=== PATIENT | male | born 1955 | race Caucasian/White ===

== ENCOUNTER 2021-05-18 11:07 | Inpatient (IN) | payer BC, MEDICARE ==
[~2021-05-18] VITALS: Ht 177.8 cm; Wt 81.3 kg
[~2021-05-18 11:07] MED LIST: ASPI325T8 PO; GEMF600T20 PO; GLIP5TAB22 PO; LISI20TA18 PO; METF-658 PO; MULT-445 PO; OXYC1TAB15 PO
[2021-05-18 11:52] LABS: BASO % 1 % (0-3); EOS # 0.2 x10^3/uL (0.0-0.7); EOS % 4 % (0-3); HEMOGLOBIN 13.8 g/dL (13.0-17.5); LYMPH # 1.7 x10^3/uL (1.0-4.8); LYMPH % 26 % (24-48); MEAN CORPUSCULAR HEMOGLOBIN 30 pg (25-35); MEAN CORPUSCULAR HGB CONC 34 g/dL (31-37); MEAN CORPUSCULAR VOLUME 89 fL (79-100); MONO # 0.6 x10^3/uL (0.0-1.1); MONO % 10 % (0-9); NEUT # 3.8 x10^3/uL (1.8-7.7); NEUT % 59 % (31-73); PLATELET COUNT 216 x10^3/uL (140-400); RED BLOOD COUNT 4.63 x10^6/uL (4.30-5.70); RED CELL DISTRIBUTION WIDTH 13.2 % (11.5-14.5); WHITE BLOOD COUNT 6.4 x10^3/uL (4.0-11.0)
--- NOTE | 2021-05-18 11:54 | PHYS DOC ---
Past Medical History Past Medical History: Diabetes-Type II, Hypertension Past Surgical History: No Surgical History Smoking Status: Never Smoker Alcohol Use: Occasionally Drug Use: None Adult General Chief Complaint Chief Complaint: NEURO SYMPTOMS/DEFICITS HPI HPI Patient is a 66 year old male presenting to the emergency department for evaluation of slurred speech right hand discoordination and right leg weakness he says that he keeps odd hours and [facility] his baseline and then went to sleep and woke up this morning at 9 AM is not that is when he was trying to write something down and he says that he has very neat handwriting but noticed that he could not coordinate or write legibly as he usually does. He also felt that his right leg was weak and his noted that his speech was slurred. Patient has a history of hypertension diabetes and high cholesterol and he denies taking any blood thinners. He is in no acute distress with normal vital signs other than initial hypertension at 154/101 noted. Review of Systems Review of Systems Constitutional: Denies fever or chills [] Eyes: Denies change in visual acuity, redness, or eye pain [] HENT: Denies nasal congestion or sore throat [] Respiratory: Denies cough or shortness of breath [] Cardiovascular: No additional information not addressed in HPI [] GI: Denies abdominal pain, nausea, vomiting, bloody stools or diarrhea [] : Denies dysuria or hematuria [] Musculoskeletal: Denies back pain or joint pain [] Integument: Denies rash or skin lesions [] Neurologic: Denies headache. Positive focal weakness and discoordination. All other systems were reviewed and found to be within normal limits, except as documented in this note. Current Medications Current Medications Current Medications Medications (Trade) Dose Ordered Sig/Dulce Start Time Stop Time Status Last Admin Dose Admin Info (CONTRAST GIVEN -- Rx MONITORING) 1 each PRN DAILY PRN 05/18/21 12:15 05/20/21 12:14 Iohexol (Omnipaque 300 Mg/ml) 75 ml 1X ONCE 05/18/21 12:15 05/18/21 12:16 DC Allergies Allergies Allergies Coded Allergies Type Severity Reaction Last Updated Verified No Known Drug Allergies 04/06/14 No Physical Exam Physical Exam Constitutional: Well developed, well nourished, no acute distress, non-toxic appearance. [] HENT: Normocephalic, atraumatic, bilateral external ears normal, oropharynx moist, no oral exudates, nose normal. [] Eyes: PERRLA, EOMI, conjunctiva normal, no discharge. [] Neck: Normal range of motion, no tenderness, supple, no stridor. [] Cardiovascular:Heart rate regular rhythm, no murmur [] Lungs & Thorax: Bilateral breath sounds clear to auscultation [] Abdomen: Bowel sounds normal, soft, no tenderness, no masses, no pulsatile masses. [] Skin: Warm, dry, no erythema, no rash. [] Back: No tenderness, no CVA tenderness. [] Extremities: No tenderness, no cyanosis, no clubbing, ROM intact, no edema. [] Neurologic: Alert and oriented X 3, normal motor function, normal sensory function, no focal deficits noted. Normal [id number] and [id number]. Current Patient Data Lab Values Laboratory Tests Test 05/18/21 11:26 05/18/21 11:35 05/18/21 11:37 Glucose (Fingerstick) 142 mg/dL (70-99) H Thyroid Stimulating Hormone (TSH) 1.762 uIU/mL (0.358-3.74) White Blood Count 6.4 x10^3/uL (4.0-11.0) Red Blood Count 4.63 x10^6/uL (4.30-5.70) Hemoglobin 13.8 g/dL (13.0-17.5) Hematocrit 41.0 % (39.0-53.0) Mean Corpuscular Volume 89 fL (79-100) Mean Corpuscular Hemoglobin 30 pg (25-35) Mean Corpuscular Hemoglobin Concent 34 g/dL (31-37) Red Cell Distribution Width 13.2 % (11.5-14.5) Platelet Count 216 x10^3/uL (140-400) Neutrophils (%) (Auto) 59 % (31-73) Lymphocytes (%) (Auto) 26 % (24-48) Monocytes (%) (Auto) 10 % (0-9) H Eosinophils (%) (Auto) 4 % (0-3) H Basophils (%) (Auto) 1 % (0-3) Neutrophils # (Auto) 3.8 x10^3/uL (1.8-7.7) Lymphocytes # (Auto) 1.7 x10^3/uL (1.0-4.8) Monocytes # (Auto) 0.6 x10^3/uL (0.0-1.1) Eosinophils # (Auto) 0.2 x10^3/uL (0.0-0.7) Basophils # (Auto) 0.0 x10^3/uL (0.0-0.2) Sodium Level 139 mmol/L (136-145) Potassium Level 4.5 mmol/L (3.5-5.1) Chloride Level 102 mmol/L (98-107) Carbon Dioxide Level 25 mmol/L (21-32) Anion Gap 12 (6-14) Blood Urea Nitrogen 13 mg/dL (8-26) Creatinine 0.9 mg/dL (0.7-1.3) Estimated GFR (Cockcroft-Gault) 83.9 BUN/Creatinine Ratio 14 (6-20) Glucose Level 149 mg/dL (70-99) H Calcium Level 9.2 mg/dL (8.5-10.1) Total Bilirubin 0.6 mg/dL (0.2-1.0) Aspartate Amino Transferase (AST) 37 U/L (15-37) Alanine Aminotransferase (ALT) 44 U/L (16-63) Alkaline Phosphatase 56 U/L (46-116) Troponin I High Sensitivity 4 ng/L (4-75) IT-Sti-F-Type Natriuretic Peptide 24 pg/mL (0-124) Total Protein 7.4 g/dL (6.4-8.2) Albumin 4.8 g/dL (3.4-5.0) Albumin/Globulin Ratio 1.8 (1.0-1.7) H Laboratory Tests 05/18/21 11:37 Laboratory Tests 05/18/21 11:37 EKG EKG Sinus rhythm at 71 bpm with normal axis no deviation no ST elevation or depression normal T waves with normal intervals. Radiology/Procedures Radiology/Procedures [] Course & Med Decision Making Course & Med Decision Making Patient was seen by Dr. Ely he agrees with further stroke work-up. No signs or symptoms of a large vessel occlusion necessitating transfer patient will be admitted to the telemetry floor in stable condition with further stroke work-up pending. On my evaluation patient has an NIH stroke scale of 1 for his slurred speech. Dragon Disclaimer Dragon Disclaimer This electronic medical record was generated, in whole or in part, using a voice recognition dictation system. Departure Departure Impression: Primary Impression: Discoordination Additional Impressions: Right leg weakness Dysarthria Hypertension Disposition: ADMITTED INPATIENT Admitting Physician: LISETH Holbrook) Condition: STABLE Referrals: LIGIA KOVACS MD (PCP) Problem Qualifiers DEMETRIUS SHAFFER DO May 18, 2021 11:54
[2021-05-18 12:03] LABS: CALCIUM 9.2 mg/dL (8.5-10.1); CREATININE 0.9 mg/dL (0.7-1.3); GFR 83.9; POTASSIUM 4.5 mmol/L (3.5-5.1)
[2021-05-18 12:10] LABS: ALBUMIN 4.8 g/dL (3.4-5.0); ALBUMIN/GLOBULIN RATIO 1.8 (1.0-1.7); TOTAL BILIRUBIN 0.6 mg/dL (0.2-1.0); TOTAL PROTEIN 7.4 g/dL (6.4-8.2)
[2021-05-18] MEDS ORDERED: CONTRAST GIVEN. MC PRN (12:15)
[2021-05-18] MEDS ORDERED: IOHEXOL 300 MG/ML 100ML VIAL. IV ONE (12:15)
--- NOTE | 2021-05-18 12:19 | RAD ---
EXAMINATION: CT STROKE HEAD W/O CLINICAL HISTORY: Right upper and lower extremity weakness. TECHNIQUE: Serial axial images without IV contrast were obtained from the vertex to the foramen magnu m. CT Dose Reduction Employed: One or more of the following individualized dose reduction techniques wer e utilized for this examination: 1. Automated exposure control 2. Adjustment of the mA and/or kV ac cording to patient size 3. Use of iterative reconstruction technique. COMPARISON: None FINDINGS: Acute Change: No evidence of an acute infarct or other acute parenchymal process. Hemorrhage: No evidence of acute intracranial hemorrhage. Mass Lesion/Mass Effect: No evidence of intracranial mass or extraaxial fluid collection. No signific ant mass effect. Chronic Change: Scattered patchy foci of hypoattenuation in the supratentorial white matter, nonspeci fic but likely represents mild microvascular ischemia. Atherosclerotic calcification of the anterior and posterior circulation. Parenchyma: Mild to moderate generalized volume loss. Ventricles: Ventricular enlargement concordant with degree of parenchymal volume loss. Paranasal Sinuses and Skull Base: Visualized paranasal sinuses clear. Visualized skull base and soft tissues unremarkable. IMPRESSION: No evidence of acute intracranial abnormality. Findings discussed with DEMETRIUS SHAFFER DO at 05/18/2021 12:13 PM. Electronically signed by: Scottie Mendez DO (05/18/2021 12:16 PM) [id number]
[2021-05-18] MEDS ORDERED: ACETAMINOPHEN 325 MG TABLET. PO PRN (12:30)
[2021-05-18] MEDS ORDERED: ASPIRIN RECTAL 300 MG SUPP. PR PRN (12:30)
[2021-05-18] MEDS ORDERED: ONDANSETRON PF 4 MG/2 ML VIAL. IVP PRN (12:30)
--- NOTE | 2021-05-18 12:30 | RAD ---
EXAMINATION: CTA HEAD AND NECK W/WO CONTRAST CLINICAL HISTORY: Right upper and lower extremity weakness. TECHNIQUE: Spiral high resolution axial images were obtained through the head, neck and superior medi astinum following bolus administration of intravenous contrast for CT angiography. 3D maximum intensi ty projection images also performed. CT Dose Reduction Employed: One or more of the following individualized dose reduction techniques wer e utilized for this examination: 1. Automated exposure control 2. Adjustment of the mA and/or kV ac cording to patient size 3. Use of iterative reconstruction technique. COMPARISON: None FINDINGS: BRAIN: No evidence of acute ischemic stroke or intracranial hemorrhage. NECK: Soft Tissues: Unremarkable. Spine: Multilevel cervicothoracic degenerative changes. Lung Apices: Unremarkable. CT ARTERIOGRAM: Extracranial Circulation: Aortic Arch: Normal branching pattern from the aortic arch. No significant stenosis in the proximal b rachiocephalic vessels. Carotid Stenosis: Right Common: No significant stenosis. Right Internal Carotid Plaque: Mild to moderate mixed plaque in the bulb. Right Internal Carotid Stenosis (% by NASCET Criteria): No significant stenosis. Left Common: No significant stenosis. Left Internal Carotid Plaque: Mild calcified plaque in the bulb. Left Internal Carotid Stenosis (% by NASCET Criteria): No significant stenosis. Cervical Vertebral Arteries: Patency: Bilateral Dominance: Codominant Intracranial Circulation: Anterior Circulation: No evidence of large vessel occlusion. Mild calcified plaque in the intracrania l portion of the bilateral internal carotid arteries. Vertebrobasilar Circulation: No evidence of large vessel occlusion. IMPRESSION: No evidence of large vessel occlusion or significant carotid arterial stenosis. Findings discussed with DEMETRIUS SHAFFER DO at 05/18/2021 12:21 PM. Electronically signed by: Scottie Mendez DO (05/18/2021 12:28 PM) [id number]
--- NOTE | 2021-05-18 12:36 | PDOC2 ---
NEUROLOGY CONSULT Date of Service DOS: DATE: 05/18/21 TIME: 12:30 Reason for Consult Reason for Consult: Stroke symptoms Source Source: Chart review, Patient History of Present Illness History of Present Illness The patient is a 66-year-old right-handed male with onset of dysarthria and right side incoordination. He tells Dr. Iglesias that onset was at 0330 this sary martinez, he tells me it was 0600. His told him that he was also having some dysarthria. He is having trouble writing. There is no headache, diplopia, dysphagia, or any history of stroke, seizure, or head injury. He used to take a daily aspirin but stopped several years ago. Past Medical History Cardiovascular: HTN, Hyperlipidemia Endocrine: Diabetes Past Surgical History Past Surgical History: Hernia Repair, Other (Vasectomy) Family History Family History: Cancer, CAD Social History Social History , 2 beers a day, ex-smoker, retired Current Medications Current Medications Current Medications Iohexol (Omnipaque 300 Mg/ml) 75 ml 1X ONCE IV Last administered on 05/18/21at 12:20; Start 05/18/21 at 12:15; Stop 05/18/21 at 12:16; Status DC Info (CONTRAST GIVEN -- Rx MONITORING) 1 each PRN DAILY PRN MC SEE COMMENTS; Start 05/18/21 at 12:15; Stop 05/20/21 at 12:14 Ondansetron HCl (Zofran) 4 mg PRN Q8HRS PRN IVP NAUSEA/VOMITING; Start 05/18/21 at 12:30; Stop 05/19/21 at 12:29 Active Scripts Active Percocet 5-325 Mg Tablet (Oxycodone/Acetaminophen) 1 Each Tablet 1-2 Tab PO Q4- 6HRS Reported Aspirin 325 Mg Tablet 325 Mg PO DAILY Multivitamins (Multivitamin) 1 Each Tablet 1 Each PO DAILY Metformin Hcl Er (Metformin Hcl) 500 Mg Tab.er.24h 500 Mg PO BID Glipizide Er (Glipizide) 5 Mg Tab.er.24 5 Mg PO DAILY Gemfibrozil 600 Mg Tablet 600 Mg PO BID Lisinopril 20 Mg Tablet 20 Mg PO DAILY Allergies Allergies: Coded Allergies: No Known Drug Allergies (Unverified , 04/06/14) ROS Review of System Negative for fever, chills, weight loss, shortness of breath, chest pain, indigestion, hematochezia, melena, and dysuria. Full 14-point review of systems is negative. Physical Exam Physical Examination General: Well-developed, well-nourished white male in no acute distress HEENT: Normocephalic andatraumatic. Temporal arteriespulsatile and nontender.Fundoscopic exam unremarkable Neck: Supple without bruit, no meningismus Musculoskeletal: Stability:see neurologic. Gait exam:see neurologic. Tone:see neurologic.Strength:see neurologic. Neurological: Mental Status:intact, orientation, memory, attention span/concentration, language, fund of knowledge normal. Cranial Nerves:Pupils equal and reactive to light, extraocular movements areintact, visual cabral are full to confrontati on. Facial sensation is normal. There is a tendency for left ptosis, otherwise there is no facial asymmetry. There is slight dysarthria. Vestibulo-ocular reflex is intact. Palate elevates and tongue protrudes in midline. All other cranial related problems are negative except as mentioned before.Reflexes:2+ and symmetric with flexor plantar responses. Motor:5/5 strength with normal tone and bulk. Coordination:Slight right dysmetria. Gait:Normal, but poor tandem. Sensory:Normal pinprick, vibration, light touch, proprioception. Labs Labs Laboratory Tests Test 05/18/21 11:26 05/18/21 11:35 05/18/21 11:37 Glucose (Fingerstick) 142 mg/dL (70-99) Thyroid Stimulating Hormone (TSH) 1.762 uIU/mL (0.358-3.74) White Blood Count 6.4 x10^3/uL (4.0-11.0) Red Blood Count 4.63 x10^6/uL (4.30-5.70) Hemoglobin 13.8 g/dL (13.0-17.5) Hematocrit 41.0 % (39.0-53.0) Mean Corpuscular Volume 89 fL (79-100) Mean Corpuscular Hemoglobin 30 pg (25-35) Mean Corpuscular Hemoglobin Concent 34 g/dL (31-37) Red Cell Distribution Width 13.2 % (11.5-14.5) Platelet Count 216 x10^3/uL (140-400) Neutrophils (%) (Auto) 59 % (31-73) Lymphocytes (%) (Auto) 26 % (24-48) Monocytes (%) (Auto) 10 % (0-9) Eosinophils (%) (Auto) 4 % (0-3) Basophils (%) (Auto) 1 % (0-3) Neutrophils # (Auto) 3.8 x10^3/uL (1.8-7.7) Lymphocytes # (Auto) 1.7 x10^3/uL (1.0-4.8) Monocytes # (Auto) 0.6 x10^3/uL (0.0-1.1) Eosinophils # (Auto) 0.2 x10^3/uL (0.0-0.7) Basophils # (Auto) 0.0 x10^3/uL (0.0-0.2) Sodium Level 139 mmol/L (136-145) Potassium Level 4.5 mmol/L (3.5-5.1) Chloride Level 102 mmol/L (98-107) Carbon Dioxide Level 25 mmol/L (21-32) Anion Gap 12 (6-14) Blood Urea Nitrogen 13 mg/dL (8-26) Creatinine 0.9 mg/dL (0.7-1.3) Estimated GFR (Cockcroft-Gault) 83.9 BUN/Creatinine Ratio 14 (6-20) Glucose Level 149 mg/dL (70-99) Calcium Level 9.2 mg/dL (8.5-10.1) Total Bilirubin 0.6 mg/dL (0.2-1.0) Aspartate Amino Transf (AST/SGOT) 37 U/L (15-37) Alanine Aminotransferase (ALT/SGPT) 44 U/L (16-63) Alkaline Phosphatase 56 U/L (46-116) Troponin I High Sensitivity 4 ng/L (4-75) QF-Zdg-[id number]-Type Natriuretic Peptide 24 pg/mL (0-124) Total Protein 7.4 g/dL (6.4-8.2) Albumin 4.8 g/dL (3.4-5.0) Albumin/Globulin Ratio 1.8 (1.0-1.7) Laboratory Tests Test 05/18/21 11:26 05/18/21 11:35 05/18/21 11:37 Glucose (Fingerstick) 142 mg/dL (70-99) Thyroid Stimulating Hormone (TSH) 1.762 uIU/mL (0.358-3.74) White Blood Count 6.4 x10^3/uL (4.0-11.0) Red Blood Count 4.63 x10^6/uL (4.30-5.70) Hemoglobin 13.8 g/dL (13.0-17.5) Hematocrit 41.0 % (39.0-53.0) Mean Corpuscular Volume 89 fL (79-100) Mean Corpuscular Hemoglobin 30 pg (25-35) Mean Corpuscular Hemoglobin Concent 34 g/dL (31-37) Red Cell Distribution Width 13.2 % (11.5-14.5) Platelet Count 216 x10^3/uL (140-400) Neutrophils (%) (Auto) 59 % (31-73) Lymphocytes (%) (Auto) 26 % (24-48) Monocytes (%) (Auto) 10 % (0-9) Eosinophils (%) (Auto) 4 % (0-3) Basophils (%) (Auto) 1 % (0-3) Neutrophils # (Auto) 3.8 x10^3/uL (1.8-7.7) Lymphocytes # (Auto) 1.7 x10^3/uL (1.0-4.8) Monocytes # (Auto) 0.6 x10^3/uL (0.0-1.1) Eosinophils # (Auto) 0.2 x10^3/uL (0.0-0.7) Basophils # (Auto) 0.0 x10^3/uL (0.0-0.2) Sodium Level 139 mmol/L (136-145) Potassium Level 4.5 mmol/L (3.5-5.1) Chloride Level 102 mmol/L (98-107) Carbon Dioxide Level 25 mmol/L (21-32) Anion Gap 12 (6-14) Blood Urea Nitrogen 13 mg/dL (8-26) Creatinine 0.9 mg/dL (0.7-1.3) Estimated GFR (Cockcroft-Gault) 83.9 BUN/Creatinine Ratio 14 (6-20) Glucose Level 149 mg/dL (70-99) Calcium Level 9.2 mg/dL (8.5-10.1) Total Bilirubin 0.6 mg/dL (0.2-1.0) Aspartate Amino Transf (AST/SGOT) 37 U/L (15-37) Alanine Aminotransferase (ALT/SGPT) 44 U/L (16-63) Alkaline Phosphatase 56 U/L (46-116) Troponin I High Sensitivity 4 ng/L (4-75) UM-[id number]-I-Type Natriuretic Peptide 24 pg/mL (0-124) Total Protein 7.4 g/dL (6.4-8.2) Albumin 4.8 g/dL (3.4-5.0) Albumin/Globulin Ratio 1.8 (1.0-1.7) Images Images CTA HEAD AND NECK W/WO CONTRAST BRAIN: No evidence of acute ischemic stroke or intracranial hemorrhage. NECK: Soft Tissues: Unremarkable. Spine: Multilevel cervicothoracic degenerative changes. Lung Apices: Unremarkable. CT ARTERIOGRAM: Extracranial Circulation: Aortic Arch: Normal branching pattern from the aortic arch. No significant stenosis in the proximal brachiocephalic vessels. Carotid Stenosis: Right Common: No significant stenosis. Right Internal Carotid Plaque: Mild to moderate mixed plaque in the bulb. Right Internal Carotid Stenosis (% by NASCET Criteria): No significant stenosis. Left Common: No significant stenosis. Left Internal Carotid Plaque: Mild calcified plaque in the bulb. Left Internal Carotid Stenosis (% by NASCET Criteria): No significant stenosis. Cervical Vertebral Arteries: Patency: Bilateral Dominance: Codominant Intracranial Circulation: Anterior Circulation: No evidence of large vessel occlusion. Mild calcified plaque in the intracranial portion of the bilateral internal carotid arteries. Vertebrobasilar Circulation: No evidence of large vessel occlusion. IMPRESSION: No evidence of large vessel occlusion or significant carotid arterial stenosis. CT STROKE HEAD W/O Acute Change: No evidence of an acute infarct or other acute parenchymal process. Hemorrhage: No evidence of acute intracranial hemorrhage. Mass Lesion/Mass Effect: No evidence of intracranial mass or extraaxial fluid collection. No significant mass effect. Chronic Change: Scattered patchy foci of hypoattenuation in the supratentorial white matter, nonspecific but likely represents mild microvascular ischemia. Atherosclerotic calcification of the anterior and posterior circulation. Parenchyma: Mild to moderate generalized volume loss. Ventricles: Ventricular enlargement concordant with degree of parenchymal volume loss. Paranasal Sinuses and Skull Base: Visualized paranasal sinuses clear. Visualized skull base and soft tissues unremarkable. IMPRESSION: No evidence of acute intracranial abnormality. Assessment/Plan Assessment/Plan Impression: Clinically a small-vessel lacunar stroke involving the right sided dysmetria and dysarthria which are both very mild. He is outside the alteplase window and I discussed the case with Dr. Iglesias and we agreed alteplase was not indicated. Patient has no evidence of large vessel occlusion. Hypertension, diabetes, hyperlipidemia Recommendations: Brain MRI Echocardiogram Aspirin Statin Rehabilitation screening Home as soon as tomorrow Also see stroke orders. Thank you for letting me help with the patient's care. LISA GARCIAS MD May 18, 2021 12:36
[2021-05-18 12:55] LABS: CHOLESTEROL/HDL RATIO 4.8
[2021-05-18] MEDS: ASPIRIN ENTERIC COATED 325 MG TABLET.DR. PO SCH (13:31)
[2021-05-18] MEDS: MULTIVIT INFUSN,ADULT 4,VIT K 10 ML, THIAMINE INJ 100 MG, FOLIC ACID INJ 1 MG in IV NOR... IV SCH (13:32)
--- NOTE | 2021-05-18 13:56 | PDOC1 ---
History and Physical Date of Service: DOS: DATE: 05/18/21 TIME: 13:56 Chief Complaint: Chief Complain: neuro cymptoms History of Present Illness: HPI: Patient is a 66 year old male presenting to the emergency department for evaluation of slurred speech right hand discoordination and right leg weakness he says that he keeps odd hours and was awake this morning at 3:30 in the morning. At his baseline and then went to sleep and woke up this morning at 9 AM is not that is when he was trying to write something down and he says that he has very neat handwriting but noticed that he could not coordinate or write legibly as he usually does. He also felt that his right leg was weak and his noted that his speech was slurred. Patient has a history of hypertension diabetes and high cholesterol and he denies taking any blood thinners. He is in no acute distress with normal vital signs other than initial hypertension at 154/101 noted. Past Medical/Surgical History: PMH/PSH: Past Medical History: Diabetes-Type II, Hypertension Past Surgical History: No Surgical History Smoking Status: Never Smoker Alcohol Use: Occasionally Drug Use: None Allergies: Allergies: Coded Allergies: No Known Drug Allergies (Unverified , 04/06/14) Family History: Family History: DM2 Current Medications: Current Medications Current Medications Iohexol (Omnipaque 300 Mg/ml) 75 ml 1X ONCE IV Last administered on 05/18/21at 12:20; Start 05/18/21 at 12:15; Stop 05/18/21 at 12:16; Status DC Info (CONTRAST GIVEN -- Rx MONITORING) 1 each PRN DAILY PRN MC SEE COMMENTS; S tart 05/18/21 at 12:15; Stop 05/20/21 at 12:14 Ondansetron HCl (Zofran) 4 mg PRN Q8HRS PRN IVP NAUSEA/VOMITING; Start 05/18/21 at 12:30; Stop 05/19/21 at 12:29 Atorvastatin Calcium (Lipitor) 80 mg QHS PO ; Start 05/18/21 at 21:00 Acetaminophen (Tylenol) 650 mg PRN Q6HRS PRN PO MILD PAIN / TEMP > 100.3'F; Start 05/18/21 at 12:30 Aspirin (Ecotrin) 325 mg DAILYWBKFT PO Last administered on 05/18/21at 13:31; Start 05/18/21 at 13:00 Aspirin (Aspirin Rectal Supp) 300 mg PRN DAILY PRN HI IF UNABLE TO TAKE PO; Start 05/18/21 at 12:30 Multivitamins 10 ml/Thiamine HCl 100 mg/Folic Acid 1 mg/Sodium Chloride 1,011.2 ml @ 100 mls/ hr DAILY IV Last administered on 05/18/21at 13:32; Start 05/18/21 at 13:00; Stop 05/22/21 at 19:07 Thiamine HCl (Thiamine Im) 100 mg DAILY IM ; Start 05/23/21 at 09:00; Stop 05/28/21 at 08:59 Lorazepam (Ativan) 2 mg Q6H PO Last administered on 05/18/21at 13:32; Start 05/18/21 at 12:30; Stop 05/19/21 at 18:31 Active Scripts Active Percocet 5-325 Mg Tablet (Oxycodone/Acetaminophen) 1 Each Tablet 1-2 Tab PO Q4- 6HRS Reported Aspirin 325 Mg Tablet 325 Mg PO DAILY Multivitamins (Multivitamin) 1 Each Tablet 1 Each PO DAILY Metformin Hcl Er (Metformin Hcl) 500 Mg Tab.er.24h 500 Mg PO BID Glipizide Er (Glipizide) 5 Mg Tab.er.24 5 Mg PO DAILY Gemfibrozil 600 Mg Tablet 600 Mg PO BID Lisinopril 20 Mg Tablet 20 Mg PO DAILY ROS: Review of Systems Review of System Unless noted in HPI 14 point review of systems is negative Physical Exam: Physcial Exam: GEN: No apparent distress. Alert and oriented HEENT: Normal cephalic, atraumatic, external auditory canals are patent EYES: Extraocular muscles are intact, pupil are equally round and reactive to light and accommodation MUSCULOSKELETAL: Well developed , well nourished, good range of motion ENDOCRINE: No thyromegaly was palpated LYMPHATICS: No cervical chain or axillary nodes were noted HEMATOPOIETIC: No bruising NECK: Supple, no JVD, no thyromegaly was noted LUNGS: Clear to auscultation in all lung cabral without rhonchi or wheezing HEART: RRR, S!, S2 present. Peripheral pulses intact, no obvious murmurs noted ABDOMEN: Soft, nontender. Positive bowel sounds, no organomegaly, normal bowel sounds EXTREMITIES: Without clubbing, cyanosis, or edema. Pedal pulses intact. Negative Homans sign NEUROLOGIC: Normal speech and tone. A&O x 3, moves all extremities, no obvious focal deficits PSYCHIATRIC: Normal affect, normal mood. Stable SKIN: No ulcerations or rashes, good skin turgor, no jaundice VASCULAR: Good capillary refill, neurovascular bundle appears to be intact Labs: Labs: Laboratory Tests Test 05/18/21 11:26 05/18/21 11:35 05/18/21 11:37 Glucose (Fingerstick) 142 mg/dL (70-99) Thyroid Stimulating Hormone (TSH) 1.762 uIU/mL (0.358-3.74) White Blood Count 6.4 x10^3/uL (4.0-11.0) Red Blood Count 4.63 x10^6/uL (4.30-5.70) Hemoglobin 13.8 g/dL (13.0-17.5) Hematocrit 41.0 % (39.0-53.0) Mean Corpuscular Volume 89 fL (79-100) Mean Corpuscular Hemoglobin 30 pg (25-35) Mean Corpuscular Hemoglobin Concent 34 g/dL (31-37) Red Cell Distribution Width 13.2 % (11.5-14.5) Platelet Count 216 x10^3/uL (140-400) Neutrophils (%) (Auto) 59 % (31-73) Lymphocytes (%) (Auto) 26 % (24-48) Monocytes (%) (Auto) 10 % (0-9) Eosinophils (%) (Auto) 4 % (0-3) Basophils (%) (Auto) 1 % (0-3) Neutrophils # (Auto) 3.8 x10^3/uL (1.8-7.7) Lymphocytes # (Auto) 1.7 x10^3/uL (1.0-4.8) Monocytes # (Auto) 0.6 x10^3/uL (0.0-1.1) Eosinophils # (Auto) 0.2 x10^3/uL (0.0-0.7) Basophils # (Auto) 0.0 x10^3/uL (0.0-0.2) Prothrombin Time 14.0 SEC (11.7-14.0) Prothromb Time International Ratio 1.1 (0.8-1.1) Activated Partial Thromboplast Time 48 SEC (24-38) Sodium Level 139 mmol/L (136-145) Potassium Level 4.5 mmol/L (3.5-5.1) Chloride Level 102 mmol/L (98-107) Carbon Dioxide Level 25 mmol/L (21-32) Anion Gap 12 (6-14) Blood Urea Nitrogen 13 mg/dL (8-26) Creatinine 0.9 mg/dL (0.7-1.3) Estimated GFR (Cockcroft-Gault) 83.9 BUN/Creatinine Ratio 14 (6-20) Glucose Level 149 mg/dL (70-99) Calcium Level 9.2 mg/dL (8.5-10.1) Total Bilirubin 0.6 mg/dL (0.2-1.0) Aspartate Amino Transf (AST/SGOT) 37 U/L (15-37) Alanine Aminotransferase (ALT/SGPT) 44 U/L (16-63) Alkaline Phosphatase 56 U/L (46-116) Troponin I High Sensitivity 4 ng/L (4-75) EN-Vah-Y-Type Natriuretic Peptide 24 pg/mL (0-124) Total Protein 7.4 g/dL (6.4-8.2) Albumin 4.8 g/dL (3.4-5.0) Albumin/Globulin Ratio 1.8 (1.0-1.7) Triglycerides Level 176 mg/dL (0-150) Cholesterol Level 159 mg/dL (0-200) LDL Cholesterol, Calculated 91 mg/dL (0-100) VLDL Cholesterol, Calculated 35 mg/dL (0-40) Non-HDL Cholesterol Calculated 126 mg/dL (0-129) HDL Cholesterol 33 mg/dL (40-60) Cholesterol/HDL Ratio 4.8 Laboratory Tests Test 05/18/21 11:26 05/18/21 11:35 05/18/21 11:37 Glucose (Fingerstick) 142 mg/dL (70-99) Thyroid Stimulating Hormone (TSH) 1.762 uIU/mL (0.358-3.74) White Blood Count 6.4 x10^3/uL (4.0-11.0) Red Blood Count 4.63 x10^6/uL (4.30-5.70) Hemoglobin 13.8 g/dL (13.0-17.5) Hematocrit 41.0 % (39.0-53.0) Mean Corpuscular Volume 89 fL (79-100) Mean Corpuscular Hemoglobin 30 pg (25-35) Mean Corpuscular Hemoglobin Concent 34 g/dL (31-37) Red Cell Distribution Width 13.2 % (11.5-14.5) Platelet Count 216 x10^3/uL (140-400) Neutrophils (%) (Auto) 59 % (31-73) Lymphocytes (%) (Auto) 26 % (24-48) Monocytes (%) (Auto) 10 % (0-9) Eosinophils (%) (Auto) 4 % (0-3) Basophils (%) (Auto) 1 % (0-3) Neutrophils # (Auto) 3.8 x10^3/uL (1.8-7.7) Lymphocytes # (Auto) 1.7 x10^3/uL (1.0-4.8) Monocytes # (Auto) 0.6 x10^3/uL (0.0-1.1) Eosinophils # (Auto) 0.2 x10^3/uL (0.0-0.7) Basophils # (Auto) 0.0 x10^3/uL (0.0-0.2) Prothrombin Time 14.0 SEC (11.7-14.0) Prothromb Time International Ratio 1.1 (0.8-1.1) Activated Partial Thromboplast Time 48 SEC (24-38) Sodium Level 139 mmol/L (136-145) Potassium Level 4.5 mmol/L (3.5-5.1) Chloride Level 102 mmol/L (98-107) Carbon Dioxide Level 25 mmol/L (21-32) Anion Gap 12 (6-14) Blood Urea Nitrogen 13 mg/dL (8-26) Creatinine 0.9 mg/dL (0.7-1.3) Estimated GFR (Cockcroft-Gault) 83.9 BUN/Creatinine Ratio 14 (6-20) Glucose Level 149 mg/dL (70-99) Calcium Level 9.2 mg/dL (8.5-10.1) Total Bilirubin 0.6 mg/dL (0.2-1.0) Aspartate Amino Transf (AST/SGOT) 37 U/L (15-37) Alanine Aminotransferase (ALT/SGPT) 44 U/L (16-63) Alkaline Phosphatase 56 U/L (46-116) Troponin I High Sensitivity 4 ng/L (4-75) DX-Gfy-[id number]-Type Natriuretic Peptide 24 pg/mL (0-124) Total Protein 7.4 g/dL (6.4-8.2) Albumin 4.8 g/dL (3.4-5.0) Albumin/Globulin Ratio 1.8 (1.0-1.7) Triglycerides Level 176 mg/dL (0-150) Cholesterol Level 159 mg/dL (0-200) LDL Cholesterol, Calculated 91 mg/dL (0-100) VLDL Cholesterol, Calculated 35 mg/dL (0-40) Non-HDL Cholesterol Calculated 126 mg/dL (0-129) HDL Cholesterol 33 mg/dL (40-60) Cholesterol/HDL Ratio 4.8 Assessment/Plan Assessment/Plan Impression: Clinically a small-vessel lacunar stroke involving the right sided dysmetria and dysarthria which are both very mild. He is outside the alteplase window and I discussed the case with Dr. Iglesias and we agreed alteplase was not indicated. Patient has no evidence of large vessel occlusion. Hypertension, diabetes, hyperlipidemia Recommendations: Brain MRI Echocardiogram Aspirin Statin Rehabilitation screening Home as soon as tomorrow Also see stroke orders. Justifications for Admission Other Justification SAGRARIO PRUETT MD May 18, 2021 13:56
--- NOTE | 2021-05-18 14:06 | RAD ---
EXAMINATION: Magnetic resonance imaging (MRI) of the brain and brainstem without contrast 05/18/2021 1: 27 PM HISTORY: CVA, right dysmetria TECHNIQUE: Multiplanar multi-weighted MRI of the brain and brainstem was performed without intravenou s contrast using the general brain protocol. COMPARISON: CT head 05/18/2021. FINDINGS: The scalp and calvarium are normal. The superior sagittal sinus demonstrates normal venous flow. The corpus callosum is normal in shape and signal intensity. The posterior fossa is unremarkable. The p ituitary and sella are normal. The brainstem and craniocervical junction are unremarkable. Remote la cunar infarct identified along the right frontal periventricular white matter. Diffusion weighted images reveal no hyperintensities to suggest acute cerebral infarction. The suscep tibility weighted sequences reveal no evidence of acute or chronic hemorrhage. The ventricles are nor mal in size and position without evidence of hydrocephalus. The paranasal sinuses are normal. The visualized portions of the mastoids are unremarkable. The orbi ts appear normal. Normal flow voids are demonstrated in the carotid arteries and basilar artery. IMPRESSION: 1. No evidence for acute or subacute ischemia. 2. Remote lacunar infarct involving the right frontal periventricular white matter. Electronically signed by: Jolly Echols MD (05/18/2021 2:03 PM) [id number]
--- NOTE | 2021-05-18 14:07 | EKG ---
[facility] [address] [place] [address] Test Date: 2021-05-18 Test Time: 11:30:29 Pat Name: SHANAE CRONIN Department: Room: ED HOLD 1 Gender: M Professor Of Voice: : [id number] Requested By: DEMETRIUS SHAFFER Order Number: [id number] Reading MD: Sandip Shukla Measurements Intervals [place] Rate: 71 P: 38 SC: 154 QRS: 6 QRSD: 98 T: 44 QT: 376 QTc: 409 Interpretive Statements SINUS RHYTHM NORMAL ECG RI6.02 No previous ECG available for comparison Electronically Signed On 05-26-2021 14:22:06 CDT by Sandip Shukla
[2021-05-18] MEDS: metFORMIN XR 500 MG TAB.ER.24H PO SCH (17:00)
--- NOTE | 2021-05-18 17:28 | NUR ---
DR. DOTY PAGED AT [phone] ON BEHALF OF GAVI [place]TH. DR. DOTY CALLING BACK AT [phone].
[2021-05-18 20:00] VITALS: BP 141/80
[2021-05-18] MEDS ORDERED: ATORVASTATIN CALCIUM 40 MG TABLET. PO SCH (21:00)
[2021-05-18] MEDS: GEMFIBROZIL 600 MG TABLET. PO SCH (22:31)
[2021-05-18 23:00] VITALS: BP 179/83
[2021-05-19 00:22] VITALS: BP 152/89
[2021-05-19 00:36] LABS: HEMOGLOBIN A1C 7.4 % (4.8-5.6)
[2021-05-19 02:52] VITALS: BP 159/77
[2021-05-19 05:02] LABS: BASO % 0 % (0-3); EOS # 0.2 x10^3/uL (0.0-0.7); EOS % 4 % (0-3); HEMATOCRIT 39.8 % (39.0-53.0); HEMOGLOBIN 13.5 g/dL (13.0-17.5); LYMPH # 1.5 x10^3/uL (1.0-4.8); LYMPH % 23 % (24-48); MEAN CORPUSCULAR HEMOGLOBIN 30 pg (25-35); MEAN CORPUSCULAR HGB CONC 34 g/dL (31-37); MEAN CORPUSCULAR VOLUME 89 fL (79-100); MONO # 0.5 x10^3/uL (0.0-1.1); MONO % 8 % (0-9); NEUT # 4.3 x10^3/uL (1.8-7.7); NEUT % 66 % (31-73); PLATELET COUNT 190 x10^3/uL (140-400); RED BLOOD COUNT 4.46 x10^6/uL (4.30-5.70); RED CELL DISTRIBUTION WIDTH 13.2 % (11.5-14.5); WHITE BLOOD COUNT 6.6 x10^3/uL (4.0-11.0)
[2021-05-19 05:36] LABS: CALCIUM 8.8 mg/dL (8.5-10.1); CREATININE 0.8 mg/dL (0.7-1.3); GFR 96.1; POTASSIUM 4.2 mmol/L (3.5-5.1)
[2021-05-19 07:00] VITALS: BP 177/93
[2021-05-19] MEDS: MULTIVIT INFUSN,ADULT 4,VIT K 10 ML, THIAMINE INJ 100 MG, FOLIC ACID INJ 1 MG in IV NOR... IV SCH ×2 (07:25→11:36)
[2021-05-19] MEDS ORDERED: MULTIVITAMIN with MINERAL TABLET. PO SCH (09:00)
[2021-05-19] MEDS ORDERED: LISINOPRIL 20 MG TABLET PO SCH (09:00)
[2021-05-19] MEDS: GEMFIBROZIL 600 MG TABLET. PO SCH (09:00)
[2021-05-19] MEDS: metFORMIN XR 500 MG TAB.ER.24H PO SCH (09:08)
[2021-05-19] MEDS: ASPIRIN ENTERIC COATED 325 MG TABLET.DR. PO SCH (09:08)
--- NOTE | 2021-05-19 09:32 | PDOC ---
PROGRESS NOTES Date of Service DATE: 05/19/21 TIME: 09:28 Assessment Problems Medical Problems: (1) Discoordination Status: Acute (2) Dysarthria Status: Acute (3) Hypertension Status: Acute (4) Right leg weakness Status: Acute Clinically a small-vessel lacunar stroke involving the right sided dysmetria and dysarthria which are both very mild. However, MRI is negative, so officially will diagnose a transient ischemic attack, but I cannot rule out a very tiny infarct. Hypertension, diabetes, hyperlipidemia Plan Await Echocardiogram Aspirin Statin, reduce atorvastatin dose to 10 mg Rehabilitation screening Okay for discharge Discussed with Dr. [place] Subjective No complaints, wants to go home Objective Vital Signs Date Time Temp Pulse Resp B/P (MAP) Pulse Ox O2 Delivery O2 Flow Rate FiO2 05/19/21 09:09 78 177/93 05/19/21 07:00 97.7 18 97 Room Air 97.7 Intake and Output 05/19/21 07:00 Intake Total 1261 ml Output Total 400 ml Balance 861 ml Intake Oral 250 ml IV Total 1011 ml Output Urine Total 400 ml PHYSICAL EXAM Alert. Oriented to time, place and person. PERRL. EOMI. CN: no focal findings. Muscle tone: normal. Muscle strength: 5/5 DTR: 2+ Plantar reflex: Flexor Gait: Normal. Sensory exam: no abnormal findings. No cerebellar signs elicited. Review of Relevant I have reviewed the following items tom (where applicable) has been applied. Labs Laboratory Tests Test 05/18/21 11:26 05/18/21 11:35 05/18/21 11:37 05/18/21 22:09 Glucose (Fingerstick) 142 mg/dL (70-99) 93 mg/dL (70-99) Thyroid Stimulating Hormone (TSH) 1.762 uIU/mL (0.358-3.74) White Blood Count 6.4 x10^3/uL (4.0-11.0) Red Blood Count 4.63 x10^6/uL (4.30-5.70) Hemoglobin 13.8 g/dL (13.0-17.5) Hematocrit 41.0 % (39.0-53.0) Mean Corpuscular Volume 89 fL (79-100) Mean Corpuscular Hemoglobin 30 pg (25-35) Mean Corpuscular Hemoglobin Concent 34 g/dL (31-37) Red Cell Distribution Width 13.2 % (11.5-14.5) Platelet Count 216 x10^3/uL (140-400) Neutrophils (%) (Auto) 59 % (31-73) Lymphocytes (%) (Auto) 26 % (24-48) Monocytes (%) (Auto) 10 % (0-9) Eosinophils (%) (Auto) 4 % (0-3) Basophils (%) (Auto) 1 % (0-3) Neutrophils # (Auto) 3.8 x10^3/uL (1.8-7.7) Lymphocytes # (Auto) 1.7 x10^3/uL (1.0-4.8) Monocytes # (Auto) 0.6 x10^3/uL (0.0-1.1) Eosinophils # (Auto) 0.2 x10^3/uL (0.0-0.7) Basophils # (Auto) 0.0 x10^3/uL (0.0-0.2) Prothrombin Time 14.0 SEC (11.7-14.0) Prothromb Time International Ratio 1.1 (0.8-1.1) Activated Partial Thromboplast Time 48 SEC (24-38) Sodium Level 139 mmol/L (136-145) Potassium Level 4.5 mmol/L (3.5-5.1) Chloride Level 102 mmol/L (98-107) Carbon Dioxide Level 25 mmol/L (21-32) Anion Gap 12 (6-14) Blood Urea Nitrogen 13 mg/dL (8-26) Creatinine 0.9 mg/dL (0.7-1.3) Estimated GFR (Cockcroft-Gault) 83.9 BUN/Creatinine Ratio 14 (6-20) Glucose Level 149 mg/dL (70-99) Hemoglobin A1c 7.4 % (4.8-5.6) Calcium Level 9.2 mg/dL (8.5-10.1) Total Bilirubin 0.6 mg/dL (0.2-1.0) Aspartate Amino Transf (AST/SGOT) 37 U/L (15-37) Alanine Aminotransferase (ALT/SGPT) 44 U/L (16-63) Alkaline Phosphatase 56 U/L (46-116) Troponin I High Sensitivity 4 ng/L (4-75) OZ-Wyl-L-Type Natriuretic Peptide 24 pg/mL (0-124) Total Protein 7.4 g/dL (6.4-8.2) Albumin 4.8 g/dL (3.4-5.0) Albumin/Globulin Ratio 1.8 (1.0-1.7) Triglycerides Level 176 mg/dL (0-150) Cholesterol Level 159 mg/dL (0-200) LDL Cholesterol, Calculated 91 mg/dL (0-100) VLDL Cholesterol, Calculated 35 mg/dL (0-40) Non-HDL Cholesterol Calculated 126 mg/dL (0-129) HDL Cholesterol 33 mg/dL (40-60) Cholesterol/HDL Ratio 4.8 Test 05/19/21 04:00 05/19/21 07:58 White Blood Count 6.6 x10^3/uL (4.0-11.0) Red Blood Count 4.46 x10^6/uL (4.30-5.70) Hemoglobin 13.5 g/dL (13.0-17.5) Hematocrit 39.8 % (39.0-53.0) Mean Corpuscular Volume 89 fL (79-100) Mean Corpuscular Hemoglobin 30 pg (25-35) Mean Corpuscular Hemoglobin Concent 34 g/dL (31-37) Red Cell Distribution Width 13.2 % (11.5-14.5) Platelet Count 190 x10^3/uL (140-400) Neutrophils (%) (Auto) 66 % (31-73) Lymphocytes (%) (Auto) 23 % (24-48) Monocytes (%) (Auto) 8 % (0-9) Eosinophils (%) (Auto) 4 % (0-3) Basophils (%) (Auto) 0 % (0-3) Neutrophils # (Auto) 4.3 x10^3/uL (1.8-7.7) Lymphocytes # (Auto) 1.5 x10^3/uL (1.0-4.8) Monocytes # (Auto) 0.5 x10^3/uL (0.0-1.1) Eosinophils # (Auto) 0.2 x10^3/uL (0.0-0.7) Basophils # (Auto) 0.0 x10^3/uL (0.0-0.2) Sodium Level 137 mmol/L (136-145) Potassium Level 4.2 mmol/L (3.5-5.1) Chloride Level 104 mmol/L (98-107) Carbon Dioxide Level 24 mmol/L (21-32) Anion Gap 9 (6-14) Blood Urea Nitrogen 9 mg/dL (8-26) Creatinine 0.8 mg/dL (0.7-1.3) Estimated GFR (Cockcroft-Gault) 96.1 Glucose Level 128 mg/dL (70-99) Calcium Level 8.8 mg/dL (8.5-10.1) Glucose (Fingerstick) 146 mg/dL (70-99) Laboratory Tests Test 05/18/21 11:26 05/18/21 11:35 05/18/21 11:37 05/18/21 22:09 Glucose (Fingerstick) 142 mg/dL (70-99) 93 mg/dL (70-99) Thyroid Stimulating Hormone (TSH) 1.762 uIU/mL (0.358-3.74) White Blood Count 6.4 x10^3/uL (4.0-11.0) Red Blood Count 4.63 x10^6/uL (4.30-5.70) Hemoglobin 13.8 g/dL (13.0-17.5) Hematocrit 41.0 % (39.0-53.0) Mean Corpuscular Volume 89 fL (79-100) Mean Corpuscular Hemoglobin 30 pg (25-35) Mean Corpuscular Hemoglobin Concent 34 g/dL (31-37) Red Cell Distribution Width 13.2 % (11.5-14.5) Platelet Count 216 x10^3/uL (140-400) Neutrophils (%) (Auto) 59 % (31-73) Lymphocytes (%) (Auto) 26 % (24-48) Monocytes (%) (Auto) 10 % (0-9) Eosinophils (%) (Auto) 4 % (0-3) Basophils (%) (Auto) 1 % (0-3) Neutrophils # (Auto) 3.8 x10^3/uL (1.8-7.7) Lymphocytes # (Auto) 1.7 x10^3/uL (1.0-4.8) Monocytes # (Auto) 0.6 x10^3/uL (0.0-1.1) Eosinophils # (Auto) 0.2 x10^3/uL (0.0-0.7) Basophils # (Auto) 0.0 x10^3/uL (0.0-0.2) Prothrombin Time 14.0 SEC (11.7-14.0) Prothromb Time International Ratio 1.1 (0.8-1.1) Activated Partial Thromboplast Time 48 SEC (24-38) Sodium Level 139 mmol/L (136-145) Potassium Level 4.5 mmol/L (3.5-5.1) Chloride Level 102 mmol/L (98-107) Carbon Dioxide Level 25 mmol/L (21-32) Anion Gap 12 (6-14) Blood Urea Nitrogen 13 mg/dL (8-26) Creatinine 0.9 mg/dL (0.7-1.3) Estimated GFR (Cockcroft-Gault) 83.9 BUN/Creatinine Ratio 14 (6-20) Glucose Level 149 mg/dL (70-99) Hemoglobin A1c 7.4 % (4.8-5.6) Calcium Level 9.2 mg/dL (8.5-10.1) Total Bilirubin 0.6 mg/dL (0.2-1.0) Aspartate Amino Transf (AST/SGOT) 37 U/L (15-37) Alanine Aminotransferase (ALT/SGPT) 44 U/L (16-63) Alkaline Phosphatase 56 U/L (46-116) Troponin I High Sensitivity 4 ng/L (4-75) AH-Onm-S-Type Natriuretic Peptide 24 pg/mL (0-124) Total Protein 7.4 g/dL (6.4-8.2) Albumin 4.8 g/dL (3.4-5.0) Albumin/Globulin Ratio 1.8 (1.0-1.7) Triglycerides Level 176 mg/dL (0-150) Cholesterol Level 159 mg/dL (0-200) LDL Cholesterol, Calculated 91 mg/dL (0-100) VLDL Cholesterol, Calculated 35 mg/dL (0-40) Non-HDL Cholesterol Calculated 126 mg/dL (0-129) HDL Cholesterol 33 mg/dL (40-60) Cholesterol/HDL Ratio 4.8 Test 05/19/21 04:00 05/19/21 07:58 White Blood Count 6.6 x10^3/uL (4.0-11.0) Red Blood Count 4.46 x10^6/uL (4.30-5.70) Hemoglobin 13.5 g/dL (13.0-17.5) Hematocrit 39.8 % (39.0-53.0) Mean Corpuscular Volume 89 fL (79-100) Mean Corpuscular Hemoglobin 30 pg (25-35) Mean Corpuscular Hemoglobin Concent 34 g/dL (31-37) Red Cell Distribution Width 13.2 % (11.5-14.5) Platelet Count 190 x10^3/uL (140-400) Neutrophils (%) (Auto) 66 % (31-73) Lymphocytes (%) (Auto) 23 % (24-48) Monocytes (%) (Auto) 8 % (0-9) Eosinophils (%) (Auto) 4 % (0-3) Basophils (%) (Auto) 0 % (0-3) Neutrophils # (Auto) 4.3 x10^3/uL (1.8-7.7) Lymphocytes # (Auto) 1.5 x10^3/uL (1.0-4.8) Monocytes # (Auto) 0.5 x10^3/uL (0.0-1.1) Eosinophils # (Auto) 0.2 x10^3/uL (0.0-0.7) Basophils # (Auto) 0.0 x10^3/uL (0.0-0.2) Sodium Level 137 mmol/L (136-145) Potassium Level 4.2 mmol/L (3.5-5.1) Chloride Level 104 mmol/L (98-107) Carbon Dioxide Level 24 mmol/L (21-32) Anion Gap 9 (6-14) Blood Urea Nitrogen 9 mg/dL (8-26) Creatinine 0.8 mg/dL (0.7-1.3) Estimated GFR (Cockcroft-Gault) 96.1 Glucose Level 128 mg/dL (70-99) Calcium Level 8.8 mg/dL (8.5-10.1) Glucose (Fingerstick) 146 mg/dL (70-99) Medications Current Medications Iohexol (Omnipaque 300 Mg/ml) 75 ml 1X ONCE IV Last administered on 05/18/21at 12:20; Start 4/7/22 at 12:15; Stop 05/18/21 at 12:16; Status DC Info (CONTRAST GIVEN -- Rx MONITORING) 1 each PRN DAILY PRN MC SEE COMMENTS; Start 05/18/21 at 12:15; Stop 05/20/21 at 12:14 Ondansetron HCl (Zofran) 4 mg PRN Q8HRS PRN IVP NAUSEA/VOMITING; Start 05/18/21 at 12:30; Stop 05/19/21 at 12:29 Atorvastatin Calcium (Lipitor) 80 mg QHS PO Last administered on 05/18/21at 22:12; Start 05/18/21 at 21:00 Acetaminophen (Tylenol) 650 mg PRN Q6HRS PRN PO MILD PAIN / TEMP > 100.3'F; Start 05/18/21 at 12:30 Aspirin (Ecotrin) 325 mg DAILYWBKFT PO Last administered on 05/19/21at 09:08; Start 05/18/21 at 13:00 Aspirin (Aspirin Rectal Supp) 300 mg PRN DAILY PRN AL IF UNABLE TO TAKE PO; Start 05/18/21 at 12:30 Multivitamins 10 ml/Thiamine HCl 100 mg/Folic Acid 1 mg/Sodium Chloride 1,011.2 ml @ 100 mls/ hr DAILY IV Last administered on 05/18/21at 13:32; Start 05/18/21 at 13:00; Stop 05/22/21 at 19:07 Thiamine HCl (Thiamine Im) 100 mg DAILY IM ; Start 05/23/21 at 09:00; Stop 05/28/21 at 08:59 Lorazepam (Ativan) 2 mg Q6H PO Last administered on 05/18/21at 13:32; Start 05/18/21 at 12:30; Stop 05/19/21 at 18:31 Gemfibrozil (Lopid) 600 mg BID PO Last administered on 05/18/21at 22:31; Start 05/18/21 at 21:00 Lisinopril (Prinivil) 20 mg DAILY PO Last administered on 05/19/21at 09:09; Start 05/19/21 at 09:00 Metformin HCl (Glucophage Xr) 500 mg BIDWMEALS PO Last administered on 05/19/21at 09:08; Start 05/18/21 at 17:00 Multivitamins (Thera M Plus) 1 tab DAILY PO Last administered on 05/19/21at 09:09; Start 05/19/21 at 09:00 Active Scripts Active Percocet 5-325 Mg Tablet (Oxycodone/Acetaminophen) 1 Each Tablet 1-2 Tab PO Q4-6HRS Reported Aspirin 325 Mg Tablet 325 Mg PO DAILY Multivitamins (Multivitamin) 1 Each Tablet 1 Each PO DAILY Metformin Hcl Er (Metformin Hcl) 500 Mg Tab.er.24h 500 Mg PO BID Glipizide Er (Glipizide) 5 Mg Tab.er.24 5 Mg PO DAILY Gemfibrozil 600 Mg Tablet 600 Mg PO BID Lisinopril 20 Mg Tablet 20 Mg PO DAILY Vitals/I & O Vital Sign - Last 24 Hours 05/18/21 05/18/21 05/18/21 05/18/21 11:30 11:54 12:14 14:13 Temp 97.9 97.9 Pulse 77 67 67 70 Resp 16 20 20 20 B/P (MAP) 154/101 (118) 135/81 (99) 141/77 (98) 138/78 (98) Pulse Ox 98 98 98 98 O2 Delivery Room Air Room Air Room Air Room Air 05/18/21 05/18/21 05/18/21 05/18/21 14:43 15:13 15:43 16:13 Pulse 72 75 75 75 Resp 20 20 20 20 B/P (MAP) 118/73 (88) 127/69 (88) 131/75 (93) 125/78 (94) Pulse Ox 98 98 98 98 O2 Delivery Room Air Room Air Room Air Room Air 05/18/21 05/18/21 05/18/21 05/18/21 16:43 17:43 20:00 23:00 Temp 98.1 97.5 98.1 97.5 Pulse 69 73 74 74 Resp 20 20 18 18 B/P (MAP) 119/75 (90) 139/71 (93) 141/80 (100) 179/83 (115) Pulse Ox 98 98 98 98 O2 Delivery Room Air Room Air Room Air Room Air 05/19/21 05/19/21 05/19/21 05/19/21 00:22 02:52 07:00 09:09 Temp 98.0 97.7 98.0 97.7 Pulse 68 75 78 78 Resp 18 18 B/P (MAP) 152/89 (110) 159/77 (104) 177/93 (121) 177/93 Pulse Ox 99 97 O2 Delivery Room Air Room Air Room Air Intake and Output 05/18/21 05/18/21 05/19/21 15:00 23:00 07:00 Intake Total 1261 ml Output Total 400 ml Balance 861 ml Images Magnetic resonance imaging (MRI) of the brain and brainstem without contrast 05/18/2021 1:27 PM HISTORY: CVA, right dysmetria TECHNIQUE: Multiplanar multi-weighted MRI of the brain and brainstem was performed without intravenous contrast using the general brain protocol. COMPARISON: CT head 05/18/2021. FINDINGS: The scalp and calvarium are normal. The superior sagittal sinus demonstrates normal venous flow. The corpus callosum is normal in shape and signal intensity. The posterior fossa is unremarkable. The pituitary and sella are normal. The brainstem and craniocervical junction are unremarkable. Remote lacunar infarct identified along the right frontal periventricular white matter. Diffusion weighted images reveal no hyperintensities to suggest acute cerebral infarction. The susceptibility weighted sequences reveal no evidence of acute or chronic hemorrhage. The ventricles are normal in size and position without evidence of hydrocephalus. The paranasal sinuses are normal. The visualized portions of the mastoids are unremarkable. The orbits appear normal. Normal flow voids are demonstrated in the carotid arteries and basilar artery. IMPRESSION: 1. No evidence for acute or subacute ischemia. 2. Remote lacunar infarct involving the right frontal periventricular white matter. CTA HEAD AND NECK W/WO CONTRAST CLINICAL HISTORY: Right upper and lower extremity weakness. TECHNIQUE: Spiral high resolution axial images were obtained through the head, neck and superior mediastinum following bolus administration of intravenous contrast for CT angiography. 3D maximum intensity projection images also performed. CT Dose Reduction Employed: One or more of the following individualized dose reduction techniques were utilized for this examination: 1. Automated exposure control 2. Adjustment of the mA and/or kV according to patient size 3. Use of iterative reconstruction technique. COMPARISON: None FINDINGS: BRAIN: No evidence of acute ischemic stroke or intracranial hemorrhage. NECK: Soft Tissues: Unremarkable. Spine: Multilevel cervicothoracic degenerative changes. Lung Apices: Unremarkable. CT ARTERIOGRAM: Extracranial Circulation: Aortic Arch: Normal branching pattern from the aortic arch. No significant stenosis in the proximal brachiocephalic vessels. Carotid Stenosis: Right Common: No significant stenosis. Right Internal Carotid Plaque: Mild to moderate mixed plaque in the bulb. Right Internal Carotid Stenosis (% by NASCET Criteria): No significant stenosis. Left Common: No significant stenosis. Left Internal Carotid Plaque: Mild calcified plaque in the bulb. Left Internal Carotid Stenosis (% by NASCET Criteria): No significant stenosis. Cervical Vertebral Arteries: Patency: Bilateral Dominance: Codominant Intracranial Circulation: Anterior Circulation: No evidence of large vessel occlusion. Mild calcified plaque in the intracranial portion of the bilateral internal carotid arteries. Vertebrobasilar Circulation: No evidence of large vessel occlusion. IMPRESSION: No evidence of large vessel occlusion or significant carotid arterial stenosis. Justicifation of Admission Dx: Justifications for Admission: Justification of Admission Dx: N/A LISA GARCIAS MD May 19, 2021 09:32
[2021-05-19 11:00] VITALS: BP 142/68
--- NOTE | 2021-05-19 14:10 | CARD ---
MR#: [id number] Date of Study: 05/19/2021 Ordering Physician: LISA GARCIAS, Referring Physician: LISA GARCIAS Tech: Federico Morfin [facility] APPROVED REPORT EXAM: Two-dimensional and M-mode echocardiogram with Doppler and color Doppler. Other Information Quality : AverageHR: 72bpm Rhythm : NSR INDICATION CVA/TIA Echo Enhancing Agent Agent/Amount Used: Agitated Saline 8mL RISK FACTORS Hypertension Hyperlipidemia 2D DIMENSIONS Left Atrium(2D)3.2 (1.6-4.0cm)IVSd1.0 (0.7-1.1cm) Aortic Root(2D)3.5 (2.0-3.7cm)LVDd4.4 (3.9-5.9cm) LVOT Diameter2.1 (1.8-2.4cm)PWd1.0 (0.7-1.1cm) LVDs3.0 (2.5-4.0cm)FS (%) 32.2 % SV52.9 mlLVEF(%)60.6 (>50%) Mitral Valve MV E Xqttrpyp74.6cm/sMV DECEL [id number] MV A Dmmjuwza45.7cm/sMV [id number] E/A Ratio1.1MVA (PHT)3.27cm2 TDI E/Lateral E'8.0E/Medial E'10.7 Pulmonary Valve PV Peak Hulvgazu381.6cm/sPV Peak Grad.5mmHg Tricuspid Valve TR P. [id number]/sTR Peak Gr.27mmHg Pulmonary Vein S1 Abhggvuv05.7cm/sD2 Vflgkfcs00.0cm/s LEFT VENTRICLE The left ventricle is normal size. There is normal left ventricular wall thickness. The left ventricu lar systolic function is normal and the ejection fraction is within normal range. EF 55% There is nor mal LV segmental wall motion. Tissue Doppler imaging reveals moderate left ventricular diastolic dysf unction. No left ventricle thrombus noted on this study. There is no ventricular septal defect visual ized. There is no left ventricular aneurysm. There is no mass noted in the left ventricle. RIGHT VENTRICLE The right ventricle is normal size. There is normal right ventricular wall thickness. The right ventr icular systolic function is normal. ATRIA The left atrium size is normal. The right atrium size is normal. The interatrial septum is intact wit h no evidence for an atrial septal defect or patent foramen ovale as noted on 2-D or Doppler imaging. Saline bubble study is negative. AORTIC VALVE The aortic valve is normal in structure and function. Doppler and Color Flow revealed no significant aortic regurgitation. There is no significant aortic valvular stenosis. There is no aortic valvular v egetation. MITRAL VALVE The mitral valve is normal in structure and function. There is no evidence of mitral valve prolapse. There is no mitral valve stenosis. Doppler and Color-flow revealed trace to mild mitral regurgitation . TRICUSPID VALVE The tricuspid valve is normal in structure and function. Doppler and Color Flow revealed trace tricus pid regurgitation. There is no tricuspid valve prolapse or vegetation. There is no tricuspid valve st enosis. PULMONIC VALVE The pulmonary valve is normal in structure and function. Doppler and Color Flow revealed no pulmonic valvular regurgitation. There is no pulmonic valvular stenosis. GREAT VESSELS The aortic root is normal in size. The ascending aorta is normal in size. The IVC is normal in size a nd collapses >50% with inspiration. PERICARDIAL EFFUSION There is no pleural effusion. There is no evidence of significant pericardial effusion. Critical Notification Critical Value: No <Conclusion> The left ventricular systolic function is normal and the ejection fraction is within normal range. EF 55% There is normal LV segmental wall motion. The interatrial septum is intact with no evidence for an atrial septal defect or patent foramen ovale as noted on 2-D or Doppler imaging. Saline bubble study is negative. Signed by : Silvano Reagan, Electronically Approved : 05/19/2021 14:10:00
[2021-05-19 14:54] VITALS: BP 147/79
--- NOTE | 2021-05-19 14:57 | PDOC3 ---
Discharge Summary Visit Information Date of Admission: May 18, 2021 Date of Discharge: May 19, 2021 Final Diagnosis acute transient dysarthria and weakness TIA MRI is negative Hypertension, diabetes, hyperlipidemia Problems Medical Problems: (1) Discoordination Status: Acute (2) Dysarthria Status: Acute (3) Hypertension Status: Acute (4) Right leg weakness Status: Acute Brief Hospital Course Allergies Allergies Coded Allergies Type Severity Reaction Last Updated Verified No Known Drug Allergies 04/06/14 No Vital Signs Vital Signs Date Time Temp Pulse Resp B/P (MAP) Pulse Ox O2 Delivery O2 Flow Rate FiO2 05/19/21 14:54 72 20 147/79 (101) Room Air 05/19/21 11:00 97.6 97 97.6 Lab Results Laboratory Tests Test 05/18/21 11:26 05/18/21 11:35 05/18/21 11:37 05/18/21 22:09 Glucose (Fingerstick) 142 mg/dL (70-99) 93 mg/dL (70-99) Thyroid Stimulating Hormone (TSH) 1.762 uIU/mL (0.358-3.74) White Blood Count 6.4 x10^3/uL (4.0-11.0) Red Blood Count 4.63 x10^6/uL (4.30-5.70) Hemoglobin 13.8 g/dL (13.0-17.5) Hematocrit 41.0 % (39.0-53.0) Mean Corpuscular Volume 89 fL (79-100) Mean Corpuscular Hemoglobin 30 pg (25-35) Mean Corpuscular Hemoglobin Concent 34 g/dL (31-37) Red Cell Distribution Width 13.2 % (11.5-14.5) Platelet Count 216 x10^3/uL (140-400) Neutrophils (%) (Auto) 59 % (31-73) Lymphocytes (%) (Auto) 26 % (24-48) Monocytes (%) (Auto) 10 % (0-9) Eosinophils (%) (Auto) 4 % (0-3) Basophils (%) (Auto) 1 % (0-3) Neutrophils # (Auto) 3.8 x10^3/uL (1.8-7.7) Lymphocytes # (Auto) 1.7 x10^3/uL (1.0-4.8) Monocytes # (Auto) 0.6 x10^3/uL (0.0-1.1) Eosinophils # (Auto) 0.2 x10^3/uL (0.0-0.7) Basophils # (Auto) 0.0 x10^3/uL (0.0-0.2) Prothrombin Time 14.0 SEC (11.7-14.0) Prothromb Time International Ratio 1.1 (0.8-1.1) Activated Partial Thromboplast Time 48 SEC (24-38) Sodium Level 139 mmol/L (136-145) Potassium Level 4.5 mmol/L (3.5-5.1) Chloride Level 102 mmol/L (98-107) Carbon Dioxide Level 25 mmol/L (21-32) Anion Gap 12 (6-14) Blood Urea Nitrogen 13 mg/dL (8-26) Creatinine 0.9 mg/dL (0.7-1.3) Estimated GFR (Cockcroft-Gault) 83.9 BUN/Creatinine Ratio 14 (6-20) Glucose Level 149 mg/dL (70-99) Hemoglobin A1c 7.4 % (4.8-5.6) Calcium Level 9.2 mg/dL (8.5-10.1) Total Bilirubin 0.6 mg/dL (0.2-1.0) Aspartate Amino Transf (AST/SGOT) 37 U/L (15-37) Alanine Aminotransferase (ALT/SGPT) 44 U/L (16-63) Alkaline Phosphatase 56 U/L (46-116) Troponin I High Sensitivity 4 ng/L (4-75) ZN-Smc-A-Type Natriuretic Peptide 24 pg/mL (0-124) Total Protein 7.4 g/dL (6.4-8.2) Albumin 4.8 g/dL (3.4-5.0) Albumin/Globulin Ratio 1.8 (1.0-1.7) Triglycerides Level 176 mg/dL (0-150) Cholesterol Level 159 mg/dL (0-200) LDL Cholesterol, Calculated 91 mg/dL (0-100) VLDL Cholesterol, Calculated 35 mg/dL (0-40) Non-HDL Cholesterol Calculated 126 mg/dL (0-129) HDL Cholesterol 33 mg/dL (40-60) Cholesterol/HDL Ratio 4.8 Test 05/19/21 04:00 48/22 07:58 05/19/21 11:58 White Blood Count 6.6 x10^3/uL (4.0-11.0) Red Blood Count 4.46 x10^6/uL (4.30-5.70) Hemoglobin 13.5 g/dL (13.0-17.5) Hematocrit 39.8 % (39.0-53.0) Mean Corpuscular Volume 89 fL (79-100) Mean Corpuscular Hemoglobin 30 pg (25-35) Mean Corpuscular Hemoglobin Concent 34 g/dL (31-37) Red Cell Distribution Width 13.2 % (11.5-14.5) Platelet Count 190 x10^3/uL (140-400) Neutrophils (%) (Auto) 66 % (31-73) Lymphocytes (%) (Auto) 23 % (24-48) Monocytes (%) (Auto) 8 % (0-9) Eosinophils (%) (Auto) 4 % (0-3) Basophils (%) (Auto) 0 % (0-3) Neutrophils # (Auto) 4.3 x10^3/uL (1.8-7.7) Lymphocytes # (Auto) 1.5 x10^3/uL (1.0-4.8) Monocytes # (Auto) 0.5 x10^3/uL (0.0-1.1) Eosinophils # (Auto) 0.2 x10^3/uL (0.0-0.7) Basophils # (Auto) 0.0 x10^3/uL (0.0-0.2) Sodium Level 137 mmol/L (136-145) Potassium Level 4.2 mmol/L (3.5-5.1) Chloride Level 104 mmol/L (98-107) Carbon Dioxide Level 24 mmol/L (21-32) Anion Gap 9 (6-14) Blood Urea Nitrogen 9 mg/dL (8-26) Creatinine 0.8 mg/dL (0.7-1.3) Estimated GFR (Cockcroft-Gault) 96.1 Glucose Level 128 mg/dL (70-99) Calcium Level 8.8 mg/dL (8.5-10.1) Glucose (Fingerstick) 146 mg/dL (70-99) 159 mg/dL (70-99) Laboratory Tests Test 05/18/21 22:09 05/19/21 04:00 05/19/21 07:58 05/19/21 11:58 Glucose (Fingerstick) 93 mg/dL (70-99) 146 mg/dL (70-99) 159 mg/dL (70-99) White Blood Count 6.6 x10^3/uL (4.0-11.0) Red Blood Count 4.46 x10^6/uL (4.30-5.70) Hemoglobin 13.5 g/dL (13.0-17.5) Hematocrit 39.8 % (39.0-53.0) Mean Corpuscular Volume 89 fL (79-100) Mean Corpuscular Hemoglobin 30 pg (25-35) Mean Corpuscular Hemoglobin Concent 34 g/dL (31-37) Red Cell Distribution Width 13.2 % (11.5-14.5) Platelet Count 190 x10^3/uL (140-400) Neutrophils (%) (Auto) 66 % (31-73) Lymphocytes (%) (Auto) 23 % (24-48) Monocytes (%) (Auto) 8 % (0-9) Eosinophils (%) (Auto) 4 % (0-3) Basophils (%) (Auto) 0 % (0-3) Neutrophils # (Auto) 4.3 x10^3/uL (1.8-7.7) Lymphocytes # (Auto) 1.5 x10^3/uL (1.0-4.8) Monocytes # (Auto) 0.5 x10^3/uL (0.0-1.1) Eosinophils # (Auto) 0.2 x10^3/uL (0.0-0.7) Basophils # (Auto) 0.0 x10^3/uL (0.0-0.2) Sodium Level 137 mmol/L (136-145) Potassium Level 4.2 mmol/L (3.5-5.1) Chloride Level 104 mmol/L (98-107) Carbon Dioxide Level 24 mmol/L (21-32) Anion Gap 9 (6-14) Blood Urea Nitrogen 9 mg/dL (8-26) Creatinine 0.8 mg/dL (0.7-1.3) Estimated GFR (Cockcroft-Gault) 96.1 Glucose Level 128 mg/dL (70-99) Calcium Level 8.8 mg/dL (8.5-10.1) Brief Hospital Course Mr. Finnegan is a 66 old male,a dmiw ith Concern for acute stroke, symptoms improved, weldon neg, start statin, f/u Dr. Rajni Daniel Aspirin atorvastatin dose to 10 mg Rehabilitation screening Okay for discharge Discussed with Dr. Zuniga Subjective No complaints, wants to go home Discharge Information Condition at Discharge: Improved Follow Up: Weeks Disposition/Orders: D/C to Home Scheduled Aspirin (Aspirin) 325 Mg Tablet, 325 MG PO DAILY, (Reported) Entered as Reported by: ANGELINA CEBALLOS on 04/06/141715 Last Action: Reviewed on 05/19/21341 by CHAYA LORENZANA Atorvastatin Calcium (Atorvastatin Calcium) 10 Mg Tablet, 1 TAB PO DAILY for TIA, #30 Ref 1 Prescribed by: DANIEL ZUNIGA on 05/19/211512 Gemfibrozil (Gemfibrozil) 600 Mg Tablet, 600 MG PO BID, (Reported) Entered as Reported by: ANGELINA CEBALLOS on 04/06/141714 Last Action: Reviewed on 05/19/21341 by CHAYA LORENZANA Glipizide (Glipizide Er) 5 Mg Tab.er.24, 5 MG PO DAILY, (Reported) Entered as Reported by: ANGELINA CEBALLOS on 04/06/141714 Last Action: Reviewed on 05/19/21341 by CHAYA LORENZANA Lisinopril (Lisinopril) 20 Mg Tablet, 20 MG PO DAILY for FOR HYPERTENSION, (Reported) Entered as Reported by: ANGELINA CEBALLOS on 04/06/141713 Last Action: Reviewed on 05/19/21341 by CHAYA LORENZANA Metformin Hcl (Metformin Hcl Er) 500 Mg Tab.er.24h, 500 MG PO BID for ANTI- DIABETIC, Ref 0 (Reported) Entered as Reported by: ANGELINA CEBALLOS on 04/06/141714 Last Action: Reviewed on 05/19/21341 by CHAYA LORENZANA Multivitamin (Multivitamins) 1 Each Tablet, 1 EACH PO DAILY, (Reported) Entered as Reported by: ANGELINA CEBALLOS on 04/06/141715 Last Action: Reviewed on 05/19/21341 by CHAYA LORENZANA Patient Instructions Patient Instructions face to face discussion 38 total minutes for coordinatino Justicifation of Admission Dx: Justifications for Admission: Justification of Admission Dx: N/A DANIEL ZUNIGA MD May 19, 2021 14:57
[2021-05-19] MEDS ORDERED: ATOR10TA60 PO (15:13)
[2021-05-23] MEDS ORDERED: THIAMINE IM 200 MG/2 ML VIAL. IM SCH (09:00)
== END 2021-05-19 15:20 | disposition home or self-care (01) | DRG 69 ==
LOC: ER 11:07 → ED HOLD 11:58 → 6 SOUTH 12:07 → OBSVTOIN 12:24 → 6 SOUTH 19:59
PROVIDERS: ADMIT Student in an Organized Health Care Education/Training Program; ATTEND Student in an Organized Health Care Education/Training Program
DX: G45.9 Transient cerebral ischemic attack, unspecified (principal); E78.5 Hyperlipidemia, unspecified; I10 Essential (primary) hypertension; R47.1 Dysarthria and anarthria; E11.9 Type 2 diabetes mellitus without complications; E78.00 Pure hypercholesterolemia, unspecified; Z82.49 Family history of ischemic heart disease and other diseases of the circulatory system; Z83.3 Family history of diabetes mellitus; Z86.73 Personal history of transient ischemic attack (TIA), and cerebral infarction without residual deficits; Z87.891 Personal history of nicotine dependence; Z98.52 Vasectomy status
CPT/HCPCS: 36415; 70450; 70496; 70498; 70551; 80048; 80053; 80061; 82962; 83036; 83880; 84443; 84484; 85025; 85610; 85730; 93005; 93306; G0379; J3411; J3490; J7030; Q9967; 92610-GN; 99285-25; C8929; G0378